=== PATIENT | male | born 1940 | race Caucasian/White ===

== ENCOUNTER 2017-01-09 17:58 | Observation (INO) | payer MEDICARE, OTHER ==
--- NOTE | 2017-01-09 18:16 | RAD ---
HISTORY: Fluent aphasia COMPARISONS: January 30, 2016 TECHNIQUE: Multiple contiguous axial CT scans were obtained of the head without intravenous contrast. FINDINGS: HEMORRHAGE/INFARCT: There is no hemorrhage or acute infarct. MASSES/SHIFT: There is no mass or shift. EXTRA-AXIAL SPACES: There are no extra-axial fluid collections. SULCI AND VENTRICLES: The sulci and ventricles are normal in size and position for the patient's stated age. CEREBRUM: There is minimal hypoattenuation of the anterior basal ganglia on the left, stable, suggestive of chronic infarct. BRAINSTEM: There are no focal parenchymal abnormalities. CEREBELLUM: There are no focal parenchymal abnormalities. VESSELS: There is calcification of the cavernous segments of the internal carotid arteries bilaterally and of the distal vertebral arteries bilaterally. PARANASAL SINUSES: The paranasal sinuses are clear. ORBITS: The orbits are unremarkable. BONES AND SOFT TISSUE: No bone or soft tissue abnormalities are noted. OTHER: None IMPRESSION: NO ACUTE INTRACRANIAL PATHOLOGY. PRELIMINARY FINDINGS WERE DISCUSSED WITH DR. TOVAR IN THE EMERGENCY DEPARTMENT AT APPROXIMATELY 6:12 PM ON JANUARY 09, 2017.
--- NOTE | 2017-01-09 18:56 | RAD ---
HISTORY: Altered mental status, code noguera COMPARISONS: September 05, 2004 VIEWS:1: Single frontal portable view of the chest at 6:26 PM FINDINGS: LINES AND TUBES: None. CARDIOMEDIASTINAL SILHOUETTE: The cardiomediastinal silhouette is stable. PLEURA: The costophrenic angles are sharp. No pleural abnormalities are noted. LUNG PARENCHYMA: The lungs are clear. ABDOMEN: The upper abdomen is clear. There is no subphrenic gas. BONES AND SOFT TISSUES: The patient is status post median sternotomy. IMPRESSION: NO ACTIVE CARDIOPULMONARY DISEASE.
[2017-01-09 19:08] LABS: Hematocrit 44 % (42-52); Hemoglobin 14.7 g/dl (14.0-18.0); Mean Corpuscular HGB Conc 34 g/dl (31-36); Mean Corpuscular Hemoglobin 33 pg (27-31); Mean Corpuscular Volume 99 fL (80-94); Mean Platelet Volume 8 um3 (7.4-10.4); Red Blood Count 4.42 10^6/ul (4.0-5.4); Red Cell Distribution Width 15 % (10.5-15)
[2017-01-09 19:28] LABS: Albumin 4.3 g/dL (3.2-5.2); BUN/Creatinine Ratio 18.5 (8-20); Calcium 9.1 mg/dL (8.6-10.3); EGFR African American 118.5 (>60); EGFR Non-African American 92.2 (>60); Globulin 2.7 g/dL (2-4); HDL Cholesterol 41.9 mg/dL; Potassium 4.4 mmol/L (3.5-5.0); Total Bilirubin 0.4 mg/dL (0.2-1.0)
[2017-01-09 19:29] LABS: Troponin I 0.01 ng/mL (<0.04)
[2017-01-09] MEDS ORDERED: Ondansetron INJ* 2 MG/ML VIAL IV PRN (20:14)
[2017-01-09] MEDS ORDERED: Acetaminophen TAB* 325 MG PO PRN (20:14)
[2017-01-09] MEDS ORDERED: Iohexol 350* (CONTRAST) 500 ML MDV IV ONE (20:22)
[2017-01-09] MEDS ORDERED: Thiamine IV* 100 MG, Folic Acid IV* 1 MG, Multiple Vitamin IV ADULT* 10 ML in NS 0.9% 1... IV ONE (20:24)
[2017-01-09] MEDS ORDERED: LORazepam TAB(*) 1 MG PO SCH (21:00)
--- NOTE | 2017-01-09 21:08 | RAD ---
HISTORY: TIA COMPARISONS: Head CT dated January 09, 2017 TECHNIQUE: Multiple contiguous axial CT scans were obtained of the head and neck After the administration of nonionic intravenous contrast timed to the systemic arterial phase of contrast enhancement. Coronal and sagittal multiplanar reformations are submitted for review. Multiple 3-D maximum intensity projection reconstructions are also submitted for review. FINDINGS: CTA NECK: AORTIC ARCH: There is a normal three-vessel branching pattern of the aortic arch. There is no ostial or proximal stenosis of the cephalic great vessels. RIGHT VERTEBRAL ARTERY: There is moderate ostial stenosis of the right vertebral artery. LEFT VERTEBRAL ARTERY: The left vertebral artery is patent along its course, without stenosis. DOMINANCE: The left vertebral artery is dominant. RIGHT COMMON CAROTID ARTERY: The right common carotid artery is patent. The right carotid bifurcation occurs at C3-C4 RIGHT INTERNAL CAROTID ARTERY: There is atheromatous disease of the right carotid bifurcation, without right internal carotid artery stenosis by NASCET criteria. Right internal carotid artery is tortuous. RIGHT EXTERNAL CAROTID ARTERY: The right external carotid artery is unremarkable. LEFT COMMON CAROTID ARTERY: The left common carotid artery is patent. The left carotid bifurcation occurs at C2-C3 LEFT INTERNAL CAROTID ARTERY: There is atheromatous disease of the left carotid bifurcation, without left internal carotid artery stenosis by NASCET criteria. LEFT EXTERNAL CAROTID ARTERY: The left external carotid artery is unremarkable. VENOUS CIRCULATION: The venous system is unremarkable. SALIVARY GLANDS: The parotid glands, submandibular glands, sublingual glands are normal. NASAL CAVITY/NASOPHARYNX: The nasal cavity and nasopharynx are normal. ORAL CAVITY/OROPHARYNX: The oral cavity is obscured by streak artifact from dental amalgam. The visualized oral cavity and oropharynx are unremarkable. LARYNGEAL APPARATUS/HYPOPHARYNX: The laryngeal apparatus and hypopharynx are normal. UPPER AIRWAY/UPPER ESOPHAGUS: The visualized upper airway and esophagus are normal. LUNG APICES: The lung apices are clear. THYROID GLAND: The thyroid gland is normal. LYMPH NODES: There is no lymphadenopathy by size criteria. BONES AND SOFT TISSUES: Degenerative changes are noted along the spine. CTA HEAD: INTRACRANIAL CIRCULATION: There is no aneurysm, vascular malformation, occlusion, or stenosis of the visualized intracranial circulation. The anterior communicating artery complex is clear. Bilateral posterior communicating arteries are identified. VENOUS CIRCULATION: The venous system is unremarkable. PERFUSION: There is no obvious parenchymal perfusion deficit. HEMORRHAGE/INFARCT: There is no hemorrhage or acute infarct. MASSES/SHIFT: There is no mass or shift. EXTRA-AXIAL SPACES: There are no extra-axial fluid collections. SULCI AND VENTRICLES: The sulci and ventricles are normal in size and position for the patient's stated age. CEREBRUM: There are no focal parenchymal abnormalities. BRAINSTEM: There are no focal parenchymal abnormalities. CEREBELLUM: There are no focal parenchymal abnormalities. PARANASAL SINUSES: The paranasal sinuses are clear. ORBITS: The orbits are unremarkable. BONES AND SOFT TISSUE: No bone or soft tissue abnormalities are noted. OTHER: There is no abnormal enhancement. IMPRESSION: 1. ATHEROMATOUS DISEASE. 2. NO INTERNAL CAROTID ARTERY STENOSIS BY NASCET CRITERIA. 3. NO ANEURYSM, VASCULAR MALFORMATION, OCCLUSION, OR STENOSIS OF THE VISUALIZED INTRACRANIAL CIRCULATION. CPT II Codes: 3100F
--- NOTE | 2017-01-09 22:15 | HP ---
HISTORY AND PHYSICAL: DATE OF ADMISSION: 01/09/17 PRIMARY CARE PROVIDER: Seb Culver MD. CONSULTING NEUROLOGIST: Dr. Erwin. ATTENDING PROVIDER: Dr. Tracy * (dictated by Kush Curiel NP) CHIEF COMPLAINT: Slurred speech. HISTORY OF PRESENT ILLNESS: Mr. Dietz is a 76-year-old male patient who carries a history of hypertension, hyperlipidemia, CAD and atrial fibrillation. He was at [employer] today giving some remarks to a group of colleagues up at [employer]. Whilst giving the remarks, he was noted to be having difficulty with his speech and slurring his words at times. The members that were listening to the speech were concerned and called 911. The patient does not recall this. He says, to his knowledge, he did not have any facial droop. No weaknesses to one side. He says the speech is now back to his baseline. He says he has not had any recent changes in medications. He does admit to drinking 2 glasses of wine today. He denied having any chest pain, shortness of breath, no recent fevers, chills, nausea or vomiting and no recent changes to his medications. There was concern because of the change in his speech. He came in to the hospital as concern for possible TIA. He is unsure how long these symptoms lasted and the hospitalist service was asked to evaluate for admission. PAST MEDICAL HISTORY: Significant for: 1. Hypertension. 2. Hyperlipidemia. 3. CAD. 4. AFib. PAST SURGICAL HISTORY: He has had a CABG. HOME MEDICATIONS: Need to be verified because he is really unable to give them to me at this point, include: 1. Hytrin 5 mg at bedtime. 2. Xarelto 20 mg daily. 3. Fish oil 2 capsules p.o. daily. 4. Niacin 500 mg daily. 5. Lisinopril 10 mg daily. 6. Lipitor 10 mg daily. 7. Aspirin 81 mg daily. ALLERGIES TO MEDICATIONS: Include no known drug allergies. FAMILY HISTORY: It is unknown what his parents of, according to the patient. SOCIAL HISTORY: He drinks about 2 glasses of wine a day. He does not smoke. He is with children. Surrogate decision maker is his . REVIEW OF SYSTEMS: There is no documented fever. There is no significant weight change. Denied having any double vision. There is no ear discharge. Denied having any rhinorrhea. No sore throat. No thyroid enlargement. Denied having any chest pain. No orthopnea. No nocturnal dyspnea. There is no abdominal pain. No nausea, no vomiting. No dysuria, no frequency. No seizure , no loss of consciousness, no pruritus and no skin ulceration. Review of 14 systems completed and all others negative. PHYSICAL EXAMINATION GENERAL: At this time, Mr. Dietz is a 76-year-old male patient. He is sitting in the ER stretcher. He does not appear to be in any acute distress. VITAL SIGNS: Blood pressure 114/64, pulse 60, respirations 18, O2 sat 95%, temperature is 98.8. HEENT: Head is atraumatic, normocephalic. Eyes: EOMs are intact. Sclerae anicteric, not pale. Throat: Oral mucosa appears to be moist. No oropharyngeal erythema. NECK: Supple. LUNGS: Clear to auscultation bilaterally. No wheezes, rales or rhonchi. HEART: Sounds S1, S2. Irregularly irregular rate. No murmurs, rubs or gallops. ABDOMEN: Soft, flat, nontender. Bowel sounds present. EXTREMITIES: Pulses are 2+ throughout. No peripheral edema. He is able to move all 4 extremities with 5/5 strength. NEUROLOGIC: The patient is awake. He is alert. He is oriented x3. His pretzel cooker are equal. Tongue midline. Nnbq-lg-hhhf intact bilaterally. Nbyy-qa-nops intact bilaterally. He does have nystagmus noted bilaterally. Pupils reactive to light, otherwise clear. Cranial nerves II through XII were intact. His skin is intact. DIAGNOSTIC STUDIES/LABORATORY DATA: Labs today revealed WBC 5.0, RBC of 4.42, hemoglobin 14.7, hematocrit of 44, platelet count of 156. His INR was 0.89 and a PTT of 29.2. Sodium was 138, potassium 4.4, chloride 104, bicarb 26, BUN 15, creatinine of 0.81, glucose of 105, lactate 1.7, calcium 9.1, total bilirubin 0.4, AST 20, ALT 20, alk phos 52, troponin of 0.01, albumin of 4.3, LDL is 137, alcohol is 189. He had a brain CT obtained today which revealed no acute intracranial pathology. He had a chest x-ray obtained today which revealed no active cardiopulmonary disease. There was an EKG obtained today which showed atrial fibrillation with a rate of 69. He had what appeared to be a right bundle branch block which is consistent with his previous EKGs. Old medical records reviewed. ASSESSMENT AND PLAN: Mr. Dietz is an 76-year-old male patient coming to the ER today with complaints of slurred speech. On evaluation here today, there was concern for possible transient ischemic attack. He will be admitted under observation status for: 1. Slurred speech. Again, most likely this is probably from his alcohol level being 189. However, he does have significant risk factors for cerebrovascular disease. He is evaluated by Dr. Erwin and Dr. Pyle. There was concern for possible transient ischemic attack and because of these risk factors we were asked to evaluate for admission. At this point, I will go ahead and do a CTA of the head and neck. I will get an MRI of the brain. He is already on aspirin and Xarelto. We will get a lipid panel in the morning, A1c in the morning and will get neuro checks every 2 hours. In addition to this, we will place him on telemetry and follow. 2. Hypertension. Allow for permissive hypertension in setting of transient ischemic attack. 3. Hyperlipidemia. We will get a lipid panel. Continue statin therapy. 4. Coronary artery disease. He is on an aspirin and statin. We will continue. 5. Atrial fibrillation. Continue his current medical regimen. He is on Xarelto. 6. EtOH abuse. At this point, I did go ahead and put him on a WAM protocol. We will give him a banana bag. 7. DVT prophylaxis, on Xarelto. 8. Code status. Full code. 9. Fluids, electrolytes, and nutrition. He will be on a heart healthy diet. TIME SPENT: On the admission 60 minutes, greater than half the time spent face- to- face with the patient obtaining my history and physical, the other half the time spent going over the plan of care with the patient and implementing plan of care. I did discuss the plan of care with my attending, Dr. Tracy; she is in agreement. KUSH CURIEL NP CC: Seb Culver MD; Dr. Erwin* [id number]/[facility] #: [id number] NAYELY
--- NOTE | 2017-01-09 22:23 | CONS ---
NEUROLOGY CONSULTATION: DATE OF CONSULTATION: 01/09/17 LOCATION: He is in the emergency room. REFERRING PHYSICIAN: Dr. Pyle. CHIEF COMPLAINT: Slurred speech, word-finding problems. 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 They noted that he was having difficulty speaking and apparently not making sense. An ambulance was summoned. He was brought into the emergency room under the auspices of a possible code kay. Currently, the patient says he felt perfectly fine and he is not sure why they sent him in. He sort of confabulates and it was not about how he thought he was making sense, but guess that the people there did not think he was not, maybe they were right, maybe they were not. In any case, he denies feeling ill at this point. There apparently was no fall or at least none that I am aware of. In looking at prior records, he was in the emergency room on 01/30/16 with alcohol intoxication, where he was unsteady. I asked him about alcohol consumption. He says he drinks perhaps 5 to 10 drinks per day and has not had any yet today. He is on Xarelto for chronic atrial fibrillation and he says he takes it reliably and has not missed any doses. PAST MEDICAL HISTORY: Notable for chronic atrial fibrillation, left foot drop from lumbar radiculopathy, hypertension, and dyslipidemia. MEDICATIONS: At home are: 1. Lipitor 10 mg p.o. every day. 2. Aspirin 81 mg p.o. every day. 3. Xarelto 20 mg p.o. every day. 4. Niacin 500 mg p.o. every day. 5. Lisinopril 10 mg p.o. every day. 6. Hytrin 5 mg p.o. q.h.s. REVIEW OF SYSTEMS: Review of systems on the patient is pretty much negative. He has poor attention and concentration and tends to jump around from subject to subject. He generally feels well and does not think there is anything wrong with him. PHYSICAL EXAMINATION: He is well nourished and well hydrated. Blood pressure is 140/70 on the monitor, heart rate is in about 70s, and respiratory rate about 16. Heart is irregularly irregular and I do not hear murmurs. I do not hear any cervical bruits either. Oral mucosa is moist and atraumatic. Neurologically, pupils react equally from about 3 to 2 mm. Eye movements are full and choppy and he has nystagmus in the extremes of lateral gaze, right and left. Facial musculature is symmetric. There is mild flattening of the right nasolabial fold. Speech is dysarthric. Tongue protrudes in the midline and palate rises symmetrically. Motor exam reveals a left foot drop, which is less than antigravity. He has good strength in the upper extremities. He has dysmetria and lmuzdx-[id number] maneuver bilaterally. He has dysmetria and gtsr-qk-aowi maneuver is worse on the left. Plantar responses are flexor bilaterally. Knee reflexes are intact. He has poor attention and concentration. Language is generally fluent, but he has difficulty describing his recent history or naming objects. DIAGNOSTIC STUDIES/LAB DATA: Laboratory studies are still pending. Brain CT scan from earlier today is reviewed and revealed some atrophy and mild- to-moderate patchy hypodensities, but I do not see anything that looks like an acute stroke or certainly hemorrhage. IMPRESSION: My impression is that Mr. Dietz may be just suffering from alcohol intoxication. His lab studies are pending, including an alcohol level. He is certainly a cerebrovascular risk with chronic atrial fibrillation, but his inattentiveness as well as nystagmus, slurred speech, and upper extremity dysmetria speak more towards an intoxication syndrome. Also, he smells of alcohol somewhat to me. We will await and see what his labs show. I would recommend his Xarelto just be continued at this point and I do not think he needs to be given an aspirin or additional agent until we get more data. [id number]/[facility] #: [id number] [facility]
--- NOTE | 2017-01-09 23:42 | ED ---
Paul Britton Anna, scribed for Alonso Tovar MD on 01/09/17 at 1818 . Altered Mental Status - HPI Summary HPI Summary: Patient is a 76 y/o male coming to [facility] presenting with AMS that began at 1730 this evening. He was in a [employer] classroom when he began exhibiting word salad , with statements like Wheres my mouse? He got up to leave the classroom and had difficulty walking. It was not one-sided. Students left the room to find the patient and found him hunched over. Upon arrival of EMS, the symptoms had largely resolved. In the ED, the patient reports that he thought he was making sense when he was talking and was reluctant to come to the ED. The patient takes Xarelto. Denies NEVILLE, weakness. His history is significant for a fib and quadruple bypass. Patient medications have been reviewed this visit. - History Of Current Complaint Chief Complaint: EDNeurologicalDeficit Stated Complaint: CODE IRAHETA Time Seen by Provider: 01/09/17 17:59 Hx Obtained From: Patient, EMS Onset/Duration: Resolved, Suddenly Timing: Lasting Minutes Severity Initially: Moderate Severity Currently: None Character: Confusion Alleviating Factor(s): Unknown - Allergies/Home Medications Allergies/Adverse Reactions: Allergies Allergy/AdvReac Type Severity Reaction Status Date / Time No Known Allergies Allergy Verified 01/09/17 18:22 PMH/Surg Hx/FS Hx/Imm Hx Endocrine/Hematology History: Denies: Hx Diabetes Cardiovascular History: Reports: Hx Atrial Fibrillation - on Xarelto, Hx Coronary Artery Disease - HYPERLIPIDEMIA, Other Cardiovascular Problems/ Disorders - EPISODIC ATRIAL FIB Denies: Hx Hypertension, Hx Pacemaker/ICD Respiratory History: Reports: Hx Sleep Apnea History: Denies: Hx Dialysis, Hx Renal Disease Musculoskeletal History: Reports: Hx Arthritis - MOSTLY IN HANDS Sensory History: Reports: Hx Contacts or Glasses, Hx Hearing Problem - right ear , 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 VASECTOMY Hx Anesthesia Reactions: No - Family History Known Family History: Positive: Other - Both parents in their 80s, father of [place], mother of unknown causes - Social History Occupation: Retired Alcohol Use: Daily Substance Use Type: Reports: None Smoking Status (MU): Never Smoked Tobacco Review of Systems Musculoskeletal: Other - difficulty walking Neurological: Other - AMS, confusion Negative: Headache, Weakness All Other Systems Reviewed And Are Negative: Yes Physical Exam Triage Information Reviewed: Yes Vital Signs On Initial Exam: Temp Pulse Resp BP Pulse Ox 98.8 F 60 18 137/63 95 01/09/17 18:21 01/09/17 18:21 01/09/17 18:21 01/09/17 18:21 01/09/17 18:21 Vital Signs Reviewed: Yes Appearance: Positive: Well-Appearing, No Pain Distress Skin: Positive: Warm, Skin Color Reflects Adequate Perfusion, Dry Head/Face: Positive: Normal Head/Face Inspection Eyes: Positive: EOMI, ISADORA ENT: Positive: Normal ENT inspection Neck: Positive: Supple, Nontender Respiratory/Lung Sounds: Positive: Clear to Auscultation, Breath Sounds Present Cardiovascular: Positive: RRR Abdomen Description: Positive: Nontender, Soft Bowel Sounds: Positive: Present Musculoskeletal: Positive: Normal, Strength/ROM Intact Neurological: Positive: Normal, Sensory/Motor Intact, Alert, Oriented to Person Place, Time Psychiatric: Positive: Affect/Mood Appropriate Diagnostics - Vital Signs Vital Signs Temp Pulse Resp BP Pulse Ox 01/09/17 21:50 97.9 F 72 18 149/69 94 01/09/17 21:30 67 13 128/62 95 01/09/17 21:00 66 19 115/71 94 01/09/17 20:50 76 16 136/63 94 01/09/17 20:30 19 130/77 01/09/17 20:00 16 114/64 01/09/17 19:30 68 20 142/102 92 01/09/17 19:00 79 20 145/71 95 01/09/17 18:52 65 16 95 01/09/17 18:51 120/74 01/09/17 18:42 95 01/09/17 18:21 98.8 F 60 18 137/63 95 01/09/17 18:13 98.8 F 69 18 137/63 95 - Laboratory Lab Results: Lab Results 01/09/17 01/09/17 01/09/17 Range/Units 18:45 18:45 18:45 WBC 5.0 (3.5-10.8) 10^3/ul RBC 4.42 (4.0-5.4) 10^6/ul Hgb 14.7 (14.0-18.0) g/dl Hct 44 (42-52) % MCV 99 H (80-94) fL MCH 33 H (27-31) pg MCHC 34 (31-36) g/dl RDW 15 (10.5-15) % Plt Count 156 (150-450) 10^3/ul MPV 8 (7.4-10.4) um3 Neut % (Auto) 63.4 (38-83) % Lymph % (Auto) 23.3 L (25-47) % [place]renac % (Auto) 10.2 H (1-9) % Eos % (Auto) 2.5 (0-6) % Baso % (Auto) 0.6 (0-2) % Absolute Neuts (auto) 3.1 (1.5-7.7) 10^3/ul Absolute Lymphs (auto) 1.2 (1.0-4.8) 10^3/ul Absolute Monos (auto) 0.5 (0-0.8) 10^3/ul Absolute Eos (auto) 0.1 (0-0.6) 10^3/ul Absolute Basos (auto) 0 (0-0.2) 10^3/ul Absolute Nucleated RBC 0 10^3/ul Nucleated RBC % 0 INR (Anticoag Therapy) 0.89 (0.89-1.11) APTT 29.2 (26.0-36.3) seconds Sodium 138 (133-145) mmol/L Potassium 4.4 (3.5-5.0) mmol/L Chloride 104 (101-111) mmol/L Carbon Dioxide 26 (22-32) mmol/L Anion Gap 8 (2-11) mmol/L BUN 15 (6-24) mg/dL Creatinine 0.81 (0.67-1.17) mg/dL Est GFR ( Amer) 118.5 (>60) Est GFR (Non-Af Amer) 92.2 (>60) BUN/Creatinine Ratio 18.5 (8-20) Glucose 105 H (70-100) mg/dL Lactic Acid (0.5-2.0) mmol/L Calcium 9.1 (8.6-10.3) mg/dL Total Bilirubin 0.40 (0.2-1.0) mg/dL AST 20 (13-39) U/L ALT 20 (7-52) U/L Alkaline Phosphatase 52 (34-104) U/L Troponin I 0.01 (<0.04) ng/mL Total Protein 7.0 (6.4-8.9) g/dL Albumin 4.3 (3.2-5.2) g/dL Globulin 2.7 (2-4) g/dL Albumin/Globulin Ratio 1.6 (1-3) Triglycerides 179 mg/dL Cholesterol 215 mg/dL LDL Cholesterol 137 mg/dL HDL Cholesterol 41.9 mg/dL Serum Alcohol 189 H (<10) mg/dL Blood Type Antibody Screen 01/09/17 01/09/17 Range/Units 18:45 18:45 WBC (3.5-10.8) 10^3/ul RBC (4.0-5.4) 10^6/ul Hgb (14.0-18.0) g/dl Hct (42-52) % MCV (80-94) fL MCH (27-31) pg MCHC (31-36) g/dl RDW (10.5-15) % Plt Count (150-450) 10^3/ul MPV (7.4-10.4) um3 Neut % (Auto) (38-83) % Lymph % (Auto) (25-47) % Arenac % (Auto) (1-9) % Eos % (Auto) (0-6) % Baso % (Auto) (0-2) % Absolute Neuts (auto) (1.5-7.7) 10^3/ul Absolute Lymphs (auto) (1.0-4.8) 10^3/ul Absolute Monos (auto) (0-0.8) 10^3/ul Absolute Eos (auto) (0-0.6) 10^3/ul Absolute Basos (auto) (0-0.2) 10^3/ul Absolute Nucleated RBC 10^3/ul Nucleated RBC % INR (Anticoag Therapy) (0.89-1.11) APTT (26.0-36.3) seconds Sodium (133-145) mmol/L Potassium (3.5-5.0) mmol/L Chloride (101-111) mmol/L Carbon Dioxide (22-32) mmol/L Anion Gap (2-11) mmol/L BUN (6-24) mg/dL Creatinine (0.67-1.17) mg/dL Est GFR ( Amer) (>60) Est GFR (Non-Af Amer) (>60) BUN/Creatinine Ratio (8-20) Glucose (70-100) mg/dL Lactic Acid 1.7 (0.5-2.0) mmol/L Calcium (8.6-10.3) mg/dL Total Bilirubin (0.2-1.0) mg/dL AST (13-39) U/L ALT (7-52) U/L Alkaline Phosphatase (34-104) U/L Troponin I (<0.04) ng/mL Total Protein (6.4-8.9) g/dL Albumin (3.2-5.2) g/dL Globulin (2-4) g/dL Albumin/Globulin Ratio (1-3) Triglycerides mg/dL Cholesterol mg/dL LDL Cholesterol mg/dL HDL Cholesterol mg/dL Serum Alcohol (<10) mg/dL Blood Type O Positive Antibody Screen Negative Result Diagrams: 01/09/17 18:45 01/09/17 18:45 Lab Statement: Any lab studies that have been ordered have been reviewed, and results considered in the medical decision making process. - Radiology CXR Xray Interpretation: No Acute Changes Radiology Interpretation Completed By: Radiologist - IMPRESSION: NO ACTIVE CARDIOPULMONARY DISEASE. - CT Brain CT CT Interpretation: No Acute Changes CT Interpretation Completed By: Radiologist - IMPRESSION: NO ACUTE INTRACRANIAL PATHOLOGY. PRELIMINARY FINDINGS WERE DISCUSSED WITH DR. TOVAR IN THE EMERGENCY DEPARTMENT AT APPROXIMATELY 6:12 PM ON JANUARY 09, 2017. - EKG 1902 Cardiac Rate: NL - 74 bpm EKG Rhythm: Atrial Fibrillation EKG Interpretation: RBBB, LAFB Altered Mental Statu Course/Dx - Course Course Of Treatment: NO CRITICAL CARE TIME Assessment/Plan: DR FAUSTIN SAW PATIENT IN ED. DISCHARGE HOME STABLE. - Diagnoses Discharge Diagnoses: Altered mental state During the Visit The Following Alert/Code Occurred: Code Maldonado - Provider Notifications Discussed Care Of Patient With: Dr. Tracy (hospitalist) at 1933. Agrees to accept patient for admission. Discharge - Discharge Plan Condition: Stable Disposition: ADMITTED TO [facility] The documentation as recorded by the Paul kessler Anna accurately reflects the service I personally performed and the decisions made by me, Alonso Tovar MD.
[2017-01-10 06:06] LABS: Urine Bilirubin Negative (Negative); Urine Glucose Negative (Negative); Urine Nitrite Negative (Negative)
[2017-01-10 06:13] LABS: Hematocrit 42 % (42-52); Mean Corpuscular HGB Conc 34 g/dl (31-36); Mean Corpuscular Hemoglobin 33 pg (27-31); Mean Corpuscular Volume 99 fL (80-94); Mean Platelet Volume 8 um3 (7.4-10.4); Red Cell Distribution Width 15 % (10.5-15); White Blood Count 4.9 10^3/ul (3.5-10.8)
[2017-01-10 06:32] LABS: BUN/Creatinine Ratio 16.5 (8-20); Calcium 8.5 mg/dL (8.6-10.3); EGFR African American 112.1 (>60); EGFR Non-African American 87.2 (>60); HDL Cholesterol 42.1 mg/dL; Potassium 4.2 mmol/L (3.5-5.0)
[2017-01-10] MEDS ORDERED: Multivitamins/Minerals TAB PO SCH (09:00)
[2017-01-10] MEDS ORDERED: Aspirin Low Dose CHEW TAB* 81 MG PO SCH (09:00)
[2017-01-10] MEDS ORDERED: Folic Acid TAB* 1 MG PO SCH (09:00)
[2017-01-10] MEDS ORDERED: Rivaroxaban TAB(*) 20 MG TAB PO SCH (09:00)
[2017-01-10] MEDS ORDERED: Thiamine TAB* 100 MG TAB PO SCH (09:00)
[2017-01-10] MEDS ORDERED: Aspirin EC Low Dose* 81 MG TAB.EC PO SCH (09:00)
[2017-01-10] MEDS ORDERED: Atorvastatin* 10 MG TAB PO SCH (09:00)
--- NOTE | 2017-01-10 13:26 | ECHO ---
Patient: BECCA DREW [facility] Rec#: [id number] : 1940 Date: 01/10/2017 Age: 76y Height: 172.72 cm / 68.0 in Weight: 84.82 kg / 186.9 lbs Sex: M BSA: 1.99 Room#: 439 Admit Date#: 01/09/2017 Type: Inpatient Referring: Kush Curiel NP Reading: Jay Manzo MD Certified Genetic Counselor: Olivia Samuel Certified Genetic Counselor: Solange Banegas RN RDCS CC: Seb Culver MD Transthoracic Echocardiogram Indication: TIA BP: 130/71 HR: 105 Rhythm: A-Fib Indications Transient Cerebral Ischemia Findings History: HTN, HLD, CAD with CABG x 4, a-fib, miniers disease. Technical Comments: The study quality is good. Completed at 1155. Left Ventricle: The left ventricular chamber size is normal. Mild concentric left ventricular hypertrophy is observed. Global left ventricular wall motion and contractility are within normal limits. There is normal left ventricular systolic function. The estimated ejection fraction is 50-55%. The assessment of diastolic function is non-diagnostic. Left Atrium: The left atrium is moderate to severely dilated. Right Ventricle: The right ventricular cavity size is normal. The right ventricular global systolic function is normal. Right Atrium: The right atrium is moderate to severely dilated. Interatrial septum appears intact without evidence of shunting. The bubble study is negative. A patent foramen ovale is not demonstrated with color Doppler and agitated contrast. Aortic Valve: The aortic valve is trileaflet. Systolic excursion of the aortic valve cusps is reduced. There is trace to mild aortic regurgitation. There is mild aortic stenosis.by peak velocity and continuity. The aortic stenosis seems moderate to severe by 2d ; consider low output/low gradient aortic stenosis. The highest aortic valve velocity was obtained with the standard probe from the A3C view. Mitral Valve: The mitral valve leaflets are mildly thickened. There is mild to moderate mitral regurgitation. There is no evidence of mitral stenosis. Tricuspid Valve: The tricuspid valve leaflets are normal. There is mild tricuspid regurgitation. No pulmonary hypertension is noted. There is no tricuspid stenosis. Pulmonic Valve: The pulmonic valve appears normal. There is trace to mild pulmonic regurgitation. There is no pulmonic stenosis. Pericardium: There is no significant pericardial effusion. Aorta: There is mild dilatation of the ascending aorta. The aortic arch is not well visualized. There is no dilation of the aortic root. Pulmonary Artery: The main pulmonary artery appears normal. Venous: The inferior vena cava is dilated. There is a greater than 50% respiratory change in the inferior vena cava dimension. Contrast: Normal saline was used as contrast for the bubble study. Intravenous contrast was used to help determine presence of intracardiac shunting. Conclusions Mild concentric left ventricular hypertrophy is observed. The estimated ejection fraction is 50-55%. The left atrium is moderate to severely dilated. A patent foramen ovale is not demonstrated with color Doppler and agitated contrast. There is trace to mild aortic regurgitation. There is mild aortic stenosis by peak velocity and continuity. The aortic stenosis seems moderate to severe by 2d ; consider low output/low gradient aortic stenosis. There is mild to moderate mitral regurgitation. There is mild tricuspid regurgitation. Aortic stenosis was not noted on the 04/2010 study. Measurements Name Value Normal Range RVIDd (AP) 2D 2.7 cm (0.9 - 2.6) RVDdMajor (2D) 3.3 cm (2.2 - 4.4) RAd ISD 4CH 6.5 cm (3.4 - 4.9) RA (A4C)W 4.9 cm (2.9 - 4.6) IVSd (2D) 1.3 cm (0.6 - 1) LVPWd (2D) 1.2 cm (0.6 - 1) LVIDd (2D) 4.4 cm (3.6 - 5.4) LVIDs (2D) 2.8 cm - LV FS (2D) 36 % (25 - 45) Aortic Annulus 2.1 cm (1.4 - 2.6) Ao root diameter (2D) 3.1 cm (2.1 - 3.5) Ascending Ao 3.6 cm (2.1 - 3.4) LA dimension (AP) 2D 4.5 cm (2.3 - 3.8) LAd ISD 4CH 6.4 cm (2.9 - 5.3) LA ISD 4CH W 5.1 cm (2.5 - 4.5) Name Value Normal Range LA ESV SP 4CH (A/L) 93 ml - LA ESV SP 2CH (A/L) 98 ml - LA ESV BP (A/L) 95 ml - LA ESV BP (A/L) index 47.93 ml/m2 - LA ESV SP 4CH (MOD) 92 ml - LA ESV SP 2CH (MOD) 95 ml - Name Value Normal Range MV E-wave Vmax 0.8 m/sec - MV deceleration time 253 msec - LV septal e' Vmax 0.08 m/sec - LV lateral e' Vmax 0.08 m/sec - LV E:e' septal ratio 10 ratio - LV E:e' lateral ratio 10 ratio - Name Value Normal Range AV Vmax 2.2 m/sec - AV VTI 46.7 cm - AV peak gradient 18.94 mmHg - AV mean gradient 11.26 mmHg - LVOT diameter 2.2 cm - LVOT Vmax 1 m/sec - LVOT VTI 20.07 cm - LVOT peak gradient 4.07 mmHg - LVOT mean gradient 1.76 mmHg - DOI (VTI) 0.43 ratio - NICKOLAS (continuity Vmax) 1.7 cm2 - NICKOLAS (continuity VTI) 1.63 cm2 - Name Value Normal Range MR Vmax 6.3 m/sec - MR VTI 201.8 cm - Name Value Normal Range TR Vmax 2.4 m/sec - TR peak gradient 23 mmHg - RAP 8 mmHg - RVSP 31 mmHg - IVC diameter 2.2 cm - Name Value Normal Range PV Vmax 0.64 m/sec - PV peak gradient 1.66 mmHg - [place] end-diastolic Vmax 1.03 m/sec -
[2017-01-10 13:28] VITALS: BP 151/77
== END 2017-01-10 16:00 | disposition home or self-care (01) ==
LOC: ED 17:58 → MEDTELE 20:11 → UNDOADMOB 22:06 → MEDTELE 22:06
PROVIDERS: ADMIT Pediatrics; ATTEND Internal Medicine Geriatric Medicine
DX: R47.81 Slurred speech (principal); I10 Essential (primary) hypertension; E78.5 Hyperlipidemia, unspecified; F10.129 Alcohol abuse with intoxication, unspecified; I25.10 Atherosclerotic heart disease of native coronary artery without angina pectoris; I48.91 Unspecified atrial fibrillation; Z79.01 Long term (current) use of anticoagulants; I45.10 Unspecified right bundle-branch block; Z95.1 Presence of aortocoronary bypass graft; Z79.899 Other long term (current) drug therapy
CPT/HCPCS: 36415; 70450; 70496; 70498; 71010; 80048; 80053; 80061; 80320; 81003; 83036; 83605; 84484; 85025; 85610; 85730; 86850; 86900; 86901; 93005; 93306; 96374; 99285; A9270-GY; G0378; G0480; Q9967

== ENCOUNTER 2019-02-15 12:03 | Observation (INO) | payer MEDICARE, OTHER ==
[2019-02-15] MEDS ORDERED: ceFAZolin* 2 GM* ONE DOSE (Duplex) IVPB (13:00)
[2019-02-15] MEDS ORDERED: ceFAZolin 1 GM/10 ML flush(*) SYRINGE for pocket flush (cardiology) FLUSH ONE (13:00)
[2019-02-15] MEDS ORDERED: ceFAZolin VIAL 1 GM in NS *SYRINGE * * 10 ML ONE (13:00)
[2019-02-15] MEDS ORDERED: Diazepam TAB(*) 5 MG ONE (13:39)
[2019-02-15] MEDS ORDERED: Lidocaine 1% INJ* 10 MG/ML 30 ML SDV ONE (13:53)
[2019-02-15] MEDS ORDERED: Midazolam* 1 MG/ML 5 ML VIAL (5 MG) ONE (13:55)
[2019-02-15] MEDS ORDERED: fentaNYL* 50 MCG/ML 2 ML VIAL (100 MCG VIAL) ONE (13:55)
[2019-02-15] MEDS ORDERED: oxyCODONE/Acetamin 5/325 MG* TAB PO PRN (14:59)
[2019-02-15] MEDS ORDERED: Acetaminophen TAB* 325 MG PO PRN (14:59)
[2019-02-15 19:35] LABS: ABS Basophils 0.1 10^3/ul (0-0.2); ABS Eosinophils 0.1 10^3/ul (0-0.6); ABS Lymphocytes 1.1 10^3/ul (1.0-4.8); ABS Monocytes 0.3 10^3/ul (0-0.8); ABS Neutrophils 3.7 10^3/ul (1.5-7.7); Hematocrit 40 % (42-52); Hemoglobin 13.6 g/dL (14.0-18.0); Lymphocyte % 20.6 %; Mean Corpuscular HGB Conc 34 g/dL (31-36); Mean Corpuscular Hemoglobin 33 pg (27-31); Mean Corpuscular Volume 98 fL (80-94); Mean Platelet Volume 8.5 fL (7.4-10.4); Platelet Count 159 10^3/uL (150-450); Red Blood Count 4.13 10^6 /uL (4.18-5.48); Red Cell Distribution Width 14 % (10-15); White Blood Count 5.3 10^3/uL (3.5-10.8)
[2019-02-15 19:45] LABS: Activated Partial Thrombo Time 33.1 seconds (26.0-38.0); INR 1.03 (0.82-1.09)
[2019-02-15 19:52] LABS: BUN/Creatinine Ratio 16.3 (8-20); Calcium 8.9 mg/dL (8.6-10.3); EGFR African American 103.5 (>60); EGFR Non-African American 85.6 (>60); Potassium 3.9 mmol/L (3.5-5.0)
[2019-02-15] MEDS ORDERED: Lisinopril TAB* 10 MG PO ONE (19:58)
[2019-02-15] MEDS ORDERED: FLUVASTATIN 20 MG PO SCH (20:00)
[2019-02-15] MEDS: ceFAZolin 1 GM ADVAN(*) 1 GM in NS 0.9% 50 ML* 50 ML IVPB SCH (22:37)
--- NOTE | 2019-02-16 03:27 | OP ---
CC: Dr. Miller * DATE OF OPERATION: 02/15/19 - ROOM #444 DATE OF : 36 SURGEON: Devyn Lucio MD ANESTHESIA: Local anesthesia with conscious sedation. PRE-OP DIAGNOSES: Atrial fibrillation and bradycardia. POST-OP DIAGNOSES: Atrial fibrillation and bradycardia. OPERATIVE PROCEDURE: Single chamber pacemaker implantation. ESTIMATED BLOOD LOSS: Nil. COMPLICATIONS: None. INDICATIONS: The patient is an 78-year-old gentleman with a history of chronic atrial fibrillation, who has been having significant pauses as noted on a Holter monitor. Permanent pacemaker implantation was recommended. DESCRIPTION OF PROCEDURE: The patient was brought to the procedure room in a fasting state. Informed consent had been obtained prior to the procedure. All labs were reviewed. The patient was placed supine on the procedure table. His left deltopectoral area was cleaned and draped in the usual fashion. A 1% lidocaine was used for local anesthesia. Using ultrasound guidance, the axillary vein was entered by a Seldinger technique and a guidewire was placed. Over the guidewire, a 7-Indonesian sheath introducer was placed through which a right ventricular lead was advanced to the right ventricular septum. The right ventricular lead is a [employer], model 2088TC, serial #[id number] and had an R-wave sensitivity of 5.9, impedance 489 ohms, threshold 0.5 volts at 0.4 milliseconds. The ventricular lead was sutured to the pectoral fascia. The pocket was flushed. A generator was attached to the ventricular lead. The generator was placed into the pocket. The surgical incision was closed in 3 layers. The patient tolerated the procedure well and no complications. [id number]/[facility] #: [id number] [facility]
[2019-02-16] MEDS: ceFAZolin 1 GM ADVAN(*) 1 GM in NS 0.9% 50 ML* 50 ML IVPB SCH (06:13)
--- NOTE | 2019-02-16 11:50 | DS ---
DISCHARGE SUMMARY: DATE OF ADMISSION: 02/15/19 DATE OF DISCHARGE: 02/16/19 PRIMARY PHYSICIAN: Dr. Seb Culver. PRIMARY COMPETITIVE ATHLETE: Dr. Katrin Miller. ATTENDING PROVIDER: Dr. Miller * (DICTATED BY GINA ASTUDILLO NP) ADMITTING DIAGNOSES: 1. Abnormal cardiac event monitor revealing significant pauses with complaints of near syncope, here for elective single-chamber pacemaker implant. 2. History of AFib, on Xarelto therapy. 3. History of alcohol abuse. The patient is on naltrexone. 4. History of hypertension, on lisinopril therapy. DISCHARGE DIAGNOSES: 1. Symptomatic bradycardia with significant pauses, status post [employer] single -chamber pacemaker implant on 02/15/19. 2. History of AFib, on Xarelto therapy. 3. History of hypertension, will resume lisinopril therapy. 4. History of alcohol abuse, on naltrexone therapy. PROCEDURE PERFORMED: The patient underwent successful single-chamber pacemaker implant with Dr. Devyn Lucio on 02/15/19. The device is [employer]. The right ventricular lead is [employer] model 2088TC, serial #[id number]. COMPLICATIONS: None. COURSE OF HOSPITAL STAY: This is a pleasant 78-year-old male patient with a notable history of AFib, alcohol abuse, hypertension, and [id number] aortic stenosis, who was evaluated on our practice on 01/18/19 after having a near syncopal episode in September. It appears on 01/09/19, while having a glass of wine at the sailing venue, the patient felt nauseous, very woozy. He was evaluated in the emergency department by Neurology. A CT ruled out acute stroke. He was admitted for observation for possible TIA. He had no recurrent events. Outpatient ambulatory quality assurance monitor body was updated due to 2 near syncopal events. According to medical record notes, the patient had significant pauses, thus presented to [facility] on 02/15/19 for elective single chamber pacemaker implant with Dr. Devyn Lucio. He underwent the above mentioned procedure, was evaluated overnight on and no events occurred. The patient denied chest pain, palpitations, shortness of breath, or dizziness. Left anterior chest device site was inspected, dressing changed. No evidence of hematoma, nontender to palpation, no oozing noted, just scant blood noted on 4 x 4 dressing. Device interrogation this morning revealed right ventricular lead pacing threshold at 0.4 milliseconds. This morning's chest x-ray is pending to rule out pneumothorax and to evaluate right ventricular lead placement. Pending no complications, the patient will be discharged home later today, will resume home medications. The patient was instructed to resume Xarelto on 02/17/19. Temporary antibiotic prescription Keflex 250 mg tablet p.o. 3 times a day for 3 days was called in to his pharmacy. There have been no events on telemetry. The patient is ventricular paced, heart rate 60. No morning blood work to review. FOLLOWUP APPOINTMENT: The patient has a followup appointment on 02/23/19 with Nay Nicholson at 9:45 in the morning. He is to follow up with PCP, Dr. Seb Culver in 7 to 10 days. DISCHARGE MEDICATIONS: Include: 1. Xarelto 20 mg a day, to resume on 02/17/19. 2. Naltrexone 50 mg p.o. daily. 3. Lisinopril 10 mg a day. 4. Fluvastatin 20 mg a day. 5. Keflex 250 mg p.o. t.i.d. for 3 days. 6. Krill oil 1000 mg a day. DISCHARGE DIET: Low cholesterol, low fat. ACTIVITY RESTRICTIONS: The patient is to utilize left upper extremity arm immobilizer for 6 weeks. He was instructed to not drive for 7 to 10 days. We will adjust it at followup appointment on 02/23/19. The patient is aware not to lift more than 10 pounds for 6 weeks. He may shower starting 02/17/19, but was instructed not to take a bath, go swimming, or utilize hot tub. The patient is to not lift left arm above shoulder for 6 weeks. WOUND CARE: The patient was instructed to change left anterior device site dressing daily until he follows up in our practice on 02/23/19. He is aware to contact our practice or seek medical evaluation if he develops fever, chills, swelling involving left anterior chest device site, oozing, if it becomes painful or swollen. We will await this morning's chest x-ray, and if lead placement is appropriate and no pneumothorax, the patient will go home later today. Dr. Devyn Lucio agrees with the above assessment and plan. GINA ASTUDILLO, OVER THE HORIZON TARGETING SUPERVISOR [id number]/[facility] #: [id number] NAYELY
[2019-02-16 12:14] VITALS: BP 133/70
--- NOTE | 2019-02-18 11:12 | DS ---
DISCHARGE SUMMARY: ADDENDUM: Please note the patient was stable at the time of discharge. GINA ASTUDILLO, JOHN [id number]/[facility] #: [id number]
== END 2019-02-16 13:06 | disposition home or self-care (01) ==
LOC: CHICATH 12:03 → MEDTELE 15:17 → UNDOADMIN 15:17 → INTOOBSV 15:17
PROVIDERS: ADMIT Specialist; ATTEND Specialist
DX: I35.0 Nonrheumatic aortic (valve) stenosis (principal); I48.2 Chronic atrial fibrillation; I25.810 Atherosclerosis of coronary artery bypass graft(s) without angina pectoris; R55 Syncope and collapse; I10 Essential (primary) hypertension; E78.5 Hyperlipidemia, unspecified; I45.10 Unspecified right bundle-branch block; I49.5 Sick sinus syndrome; M10.9 Gout, unspecified; L03.90 Cellulitis, unspecified; I44.4 Left anterior fascicular block; R00.1 Bradycardia, unspecified
CPT/HCPCS: 33207; 36415; 71045; 71046; 80048; 85025; 85610; 85730; 93005; 96374; 99156; 99157; A9270-GY; C1786; C1898; G0378; J0690; J2250; J3010